=== PATIENT | male | born 1965 | race Caucasian/White ===

== ENCOUNTER 2020-09-18 14:23 | Observation (INO) | payer OTHER ==
--- OUTSIDE RECORDS SUMMARY | 2020-09-18 14:30 | XMS REPORT | Continuity of Care Document ---
:1965 Author Organization [facility] t Address [address] [place] [address] Care Team Providers Name Role Phone More BRYANT Primary Care Physician David Solares MD Attending Clinician Emily Joseph NP Attending Clinician Roland CLAY Attending Clinician Unavailable Eryn Vazquez MD Attending Clinician Dale HILLS Attending Clinician MD DAVID SOLARES Attending Clinician Unavailable Lovely OCHOA Attending Clinician Unavailable Hector OCHOA Attending Clinician Unavailable Provider Attending Clinician Unavailable Hayes OCHOA Attending Clinician Unavailable Federico BRYANT Attending Clinician SUJATHA Admitting Clinician Unavailable MD DAVID SOLARES Admitting Clinician Unavailable Payers Payer Name Policy Type Policy Effective Date Expiration Date [facility] Express Number AETNAAETNA PPO [id number] [place] OPEN 00:00:00 [facility] [id number] 2000-Present PPO Problems Condition Condition Condition Status Onset Resolution Last Treating Co mments Source Name Details Category Date Date Treatment Clinician Date Hemarthros Hemarthros Disease Active [place] is is 08 Methodi following following 00:00: st procedure procedure 00 Status Status Disease Active [place] post total post total 6-08 Me thodi right knee right knee 00:00: st replacemen replacemen 00 t t Primary Primary Disease Active 2017-04 [place] osteoarthr osteoarthr 0-29 Me [facility] itis of itis of 00:00: st right knee right knee 00 Primary Primary Disease Active 2017-04 [place] osteoarthr osteoarthr 0-26 Me thodi itis of itis of 00:00: st left knee left knee 00 Acute Acute Disease Active [place] meniscal meniscal 6-16 Method i tear, tear, 00:00: st medial medial 00 Primary Primary Disease Active [place] osteoarthr osteoarthr 6-16 Me thodi itis of itis of 00:00: st both knees both knees 00 Knee pain, Knee pain, Disease Active [place] left left 09-08 Methodi 00:00: st 00 Lymph Lymph Disease Active [place] edema edema 09-08 Methodi 00:00: st 00 Knee pain, Knee pain, Disease Active [place] right right 09-08 Methodi 00:00: st 00 Internal Internal Disease Active [place] derangemen derangemen 09-08 Me thodi t of both t of both 00:00: st knees knees 00 Type 2 Type 2 Disease Active [place] diabetes diabetes Method i mellitus mellitus st Allergies, Adverse Reactions, Alerts This patient has no known allergies or adverse reactions. Family History Family Member Diagnosis Comments Start Date Stop Date Source Natural father Arthritis [place] [facility] Natural mother Asthma [place] [facility] Social History Social Habit Start Date Stop Date Quantity Comments Source Exposure to Not sure [place] Metho dist SARS-CoV-2 (event) Tobacco use and 2020-09-16 2020-09-16 Never used Gianluca Gilliam ethodist exposure 00:00:00 00:00:00 Alcohol intake 2020-09-16 2020-09-16 Current drinker [place] [facility] 00:00:00 00:00:00 of alcohol (finding) Alcohol Comment 2018-07-11 2018-07-11 3-4 days a week [place] [facility] 00:00:00 00:00:00 Sex [birth year] [place] Tawana ethodist 00:00:00 00:00:00 Smoking Status Start Date Stop Date Source Never smoker [place] Methodis t Medications Ordered Filled Start Stop Current Ordering Indication Dosage Frequency Signature Comments Components Source Medication Medication Date Date Medication? Clinician (SIG) Name Name ciprofloxac Yes 500mg Q.5D Take 500 [place] in (CIPRO) 6-08 mg by Methodi 500 MG 08:39: mouth 2 st tablet 24 (two) times a day. collagenase Yes QD Apply [place] (SantyL) 6-08 topically Method i ointment 08:39: daily. st 24 b complex Yes 1{tbl} QD Take 1 [place] vitamins 6-08 tablet by Method i (B-100 08:38: mouth st COMPLEX) 52 daily. tablet glyburide-m Yes 2{tbl} Q.5D Take 2 [place] etformin 6-08 tablets by [facility] di (GLUCOVANCE 08:38: mouth 2 st ) 5-500 mg 52 (two) per tablet times a day with meals. topiramate Yes 25mg Q.5D Take 25 mg [place] (TOPAMAX) 6-08 by mouth 2 Meth monica 25 MG 08:38: (two) st tablet 52 times a day. fenofibrate Yes 145mg QD Take 145 [place] (TRICOR) 6-08 mg by Methodi 145 MG 08:38: mouth st tablet 52 daily. albuterol Yes 2{puff} Q6H Inhale 2 [place] (VENTOLIN 6-08 puffs Methodi HFA) 90 08:38: every 6 st mcg/actuati 52 (six) on inhaler hours as needed. NOVOLOG Yes Inject [place] U-100 6-08 under the [facility]i INSULIN 08:38: skin. st ASPART SUBQ 52 Insulin pump doxycycline Yes 100mg Q.5D Take 100 [place] (VIBRAMYCIN 6-08 mg by Methodi ) 100 MG 08:38: mouth 2 st oral dosage 52 (two) form times a day. HYDROcodone 2020- Yes acute pain 1{tbl} Q4H Take 1 [place] -acetaminop 6-08 06-18 tablet by Me elie monsivais (NORCO) 00:00: 23:[address] 5-325 mg 00 :00 every 4 per tablet (four) hours as needed for moderate pain for up to 10 days .acute pain. Max Daily Amount: 6 tablets irbesartan 0 2020- No 300mg QD Take 300 [place] (AVAPRO) 5-10 05-10 mg by Methodi 300 MG 09:54: 00:[address] tablet 13 :00 daily. HYDROcodone 2020- No acute pain 1{tbl} Q4H Take 1 [place] -acetaminop 5-04 05-19 tablet by Me elie monsivais (NORCO) 00:00: 23:[address] 5-325 mg 00 :00 every 4 per tablet (four) hours as needed for moderate pain for up to 15 days .acute pain. Max Daily Amount: 6 tablets lidocaine 2020- No 1{patch Q24H Place 1 [place] (LIDODERM) 08-06 } patch on Meth monica 5 % 00:00: 23:[address] 00 :00 daily for 30 days. Remove & Discard patch within 12 hours or as directed by MD brown 2020- No 100mg Q.5D Take 1 [place] sodium 08-05 capsule Methodi (Colace) 00:00: 23:59 ([address] 100 MG 00 :00 total) by capsule mouth 2 (two) times a day for 30 days. aspirin 81 2020- No 81mg Q.5D Chew 1 [place] mg chewable 08-05 tablet (81 M ethodi tablet 00:00: 23:59 mg total) st 00 :00 2 (two) times a day for 30 days. gabapentin 2020- No 300mg Q.12190814 Take 1 [place] (NEURONTIN) 08-05 [id number] capsule Methodi 300 mg 00:00: 23:59 3D ([address] capsule 00 :00 total) by mouth 3 (three) times a day for 30 days. methocarbam 2020- No 750mg Q.[id number] Take 1 [place] oL 08-05 [id number] tablet Method i (ROBAXIN) 00:00: 23:59 3D ([address] 750 MG 00 :00 total) by tablet mouth 3 (three) times a day as needed for muscle spasms for up to 30 days. celecoxib 2020- No 100mg Q.5D Take 1 [place] (CeleBREX) 08-05 capsule Metho di 100 MG 00:00: 23:59 ([address] capsule 00 :00 total) by mouth 2 (two) times a day for 30 days. oxyCODone-a 2020- No acute pain acute [place] cetaminophe 08-05 05-04 pain. 1-2 Me thodi n 00:00: 23:[address] (PERCOCET) 00 :00 orally 5-325 mg every 4 per tablet hours as needed for severe pain. Max 6/day oxyCODone 2020- No acute pain 10mg Q.5D Take 1 [place] (OxyCONTIN) 08-05 05-02 tablet (10 M ethodi 10 mg 00:00: 23:59 mg total) st tablet,oral 00 :00 by mouth 2 only,ext.re (two) l.12 hr ER times a tablet day for 5 days .acute pain. Max Daily Amount: 20 mg irbesartan- Yes 1{tbl} QD Take 1 [place] hydrochloro 4-01 tablet by [facility] hodi thiazide 00:00: mouth st (AVALIDE) 00 daily. 300-12.5 mg per tablet famotidine Yes 40mg QD Take 40 mg [place] (PEPCID) 40 3-11 by mouth Meth monica MG tablet 00:00: daily. st rosuvastati Yes 5mg QD Take 5 mg [place] n (CRESTOR) 3-02 by mouth Meth monica 5 mg tablet 00:00: daily. st 00 with meals bisoproloL- 2020- No 1{tbl} QD Take 1 [place] hydrochloro 2-06 05-10 [facility] 00:[address] (ZIAC) 00 :00 daily. 2.5-6.25 mg per tablet doxepin Yes 10mg QD Take 10 mg [place] (SINEquan) 05-07 by mouth Meth[facility] di 10 MG 00:00: nightly. st capsule 00 JARDIANCE Yes 25mg QD Take 25 mg [place] 25 mg 5-21 by mouth Methodi tablet 00:00: daily. st 00 TRULICITY Yes INJECT 0.5 [place] 1.5 mg/0.5 5-18 ML (1.5 Method i mL pen 00:00: MG) UNDER st injector 00 SKIN ONCE A WEEK montelukast 2018-0 Yes 10mg QD Take 10 mg [place] (SINGULAIR) 4-15 by mouth Meth monica 10 mg 00:00: nightly. st tablet 00 ezetimibe 2018-0 Yes 10mg QD Take 10 mg Marlon crowley (ZETIA) 10 3-16 by mouth Metho di mg tablet 00:00: every st 00 evening. Vital Signs Vital Name Observation Time Observation Value Comments Source Body height 2020-09-16 08:37:00 182.9 cm Gianluca Paulino Body weight 2020-09-16 08:37:00 144.244 kg Gianluca Paulino BMI 2020-09-16 08:37:00 43.13 kg/m2 Gianluca Paulino Heart rate 2020-08-05 08:01:00 94 /min Ginaluca Paulino Diastolic blood 2020-08-05 07:03:57 87 mm[Hg] [place] [facility] pressure Body temperature 2020-08-05 07:03:57 37.33 Ivana [place] [facility] Respiratory rate 2020-08-05 07:03:57 20 /min [place] [facility] Oxygen saturation in 2020-08-05 07:03:57 91 /min Gianluca Paulino Arterial blood by Pulse oximetry Systolic blood 2020-08-05 07:03:57 134 mm[Hg] Domo Paulino pressure Procedures Procedure Date / Time Performing Clinician Source Performed XR KNEE 1 OR 2 VW RIGHT 2020-09-16 08:49:06 Barry Solares US DUPLEX VENOUS LOWER 2020-08-18 11:34:01 Maureen Joseph on [facility] EXTREMITY RIGHT [facility] COMPLETE BLD COUNT 2020-08-05 05:27:00 Barry Solares W/AUTO DIFF BASIC METABOLIC PANEL 2020-08-05 05:27:00 Barry Solares ESTIMATED GFR 2020-08-05 05:27:00 Barry Solares POC GLUCOSE 2020-08-04 14:11:00 Barry Solares XR KNEE 1 OR 2 VW RIGHT 2020-08-04 14:00:00 Barry Solares SURGICAL PATHOLOGY REQUEST 2020-08-04 11:45:00 Barry Solares VA AN ELECTIVE 2020-08-04 11:01:00 Angelic Khan ENDOTRACHEAL AIRWAY ARTHROPLASTY, KNEE, TOTAL 2020-08-04 10:49:00 Barry Solares POC GLUCOSE 2020-08-04 10:45:00 Barry Solares VA AN PERIPHERAL BLOCK 2020-08-04 10:12:00 Angela Vazquez PROCEDURE FOR PAIN POC GLUCOSE 2020-08-04 08:43:00 Barry Solares ABO AND RH CONFIRMATION 2020-08-04 08:15:00 Barry Solares XR CHEST 2 VW 2020-07-31 12:21:00 Barry Solares COVID-19 QUALITATIVE PCR 2020-07-31 11:37:00 Barry Solares ECG 12-LEAD 2020-07-28 10:19:56 Barry Solares MRSA SCREEN CULTURE 2020-07-28 10:14:00 Maureen Joseph [facility] URINE CULTURE 2020-07-28 10:14:00 Barry Solares TYPE AND SCREEN 2020-07-28 10:14:00 Barry Solares URINALYSIS SCREEN AND 2020-07-28 10:14:00 Barry Solares MICROSCOPY, WITH REFLEX TO CULTURE HEMOGLOBIN A1C 2020-07-28 10:14:00 Barry Solares HC COMPLETE BLD COUNT 2020-07-28 10:14:00 Barry Solares W/AUTO DIFF COMPREHENSIVE METABOLIC 2020-07-28 10:14:00 Maureen Joseph PANEL [facility] PROTHROMBIN TIME WITH INR 2020-07-28 10:14:00 Maureen Joseph [place] PARTIAL THROMBOPLASTIN 2020-07-28 10:14:00 Maureen Joseph on [facility] TIME (PTT) Emily ESTIMATED GFR 2020-07-28 10:14:00 Maureen Joseph Meth odist Emily XR KNEE 4+ VW BILATERAL 2020-07-09 09:18:14 Barry Solares [facility] Plan of Care Planned Activity Planned Date Details Comments Source Future Scheduled 2020-11-09 INFLUENZA VACCINE [place] [facility] Test 00:00:00 [code = INFLUENZA VACCINE] Future Scheduled 2020-08-15 COVID-19 VACCINE (2 - [place] [facility] Test 00:00:00 Moderna 2-dose series) [code = COVID-19 VACCINE (2 - Moderna 2-dose series)] Future Scheduled 2014 COLONOSCOPY SCREENING [place] [facility] Test 00:00:00 [code = COLONOSCOPY SCREENING] Future Scheduled 2014 SHINGLES VACCINES (#1) [place] [facility] Test 00:00:00 [code = SHINGLES VACCINES (#1)] Future Scheduled 1982 Hepatitis C screening [place] [facility] Test 00:00:00 (procedure) [code = 063629568] Future Scheduled 1974 DIABETES: RETINAL EYE [place] [facility] Test 00:00:00 EXAM [code = DIABETES: RETINAL EYE EXAM] Future Scheduled 1974 DIABETIC FOOT EXAM [place] [facility] Test 00:00:00 [code = DIABETIC FOOT EXAM] Future Scheduled 1974 URINE MICROALBUMIN [place] [facility] Test 00:00:00 [code = URINE MICROALBUMIN] Encounters Start End Encounter Admission Attending Care Care Encounter Source Date/Time Date/Time Type Type Clinicians Facility Department ID 2020-09-16 2020-09-16 Outpatient SUJATHA [facility] [id number] [place] 00:00:00 00:00:00 BARRY [address] 2020-09-16 2020-09-16 Outpatient SUJATHA [facility] [id number] [place] 00:00:00 00:00:00 BARRY [address] 2020-08-18 2020-08-18 Outpatient [facility] [id number] [place] 00:00:00 00:00:[address] 2020-08-18 2020-08-18 Outpatient SOLARES, [facility] [id number] [place] 00:00:00 00:00:00 BARRY [address] 2020-08-04 2020-08-05 Outpatient SOLARES, [facility] 021 [id number] [place] 00:00:00 00:00:00 BARRY [address] 2020-07-31 2020-07-31 Outpatient SOLARES, [facility] [id number] [place] 00:00:00 00:00:00 BARRY [address] 2020-07-31 2020-07-31 Outpatient SOLARES, [facility] [id number] [place] 00:00:00 00:00:00 BARRY [address] 2020-07-31 2020-07-31 Outpatient [facility] [id number] [place] 00:00:00 00:00:[address] 2020-07-28 2020-07-28 Outpatient [facility] [id number] [place] 00:00:00 00:00:[address] 2020-07-28 2020-07-28 Outpatient SOLARES, [facility] [id number] [place] 00:00:00 00:00:00 BARRY [address] 2020-07-09 2020-07-09 Outpatient SOLARES, [facility] [id number] [place] 00:00:00 00:00:00 BARRY [address] 2020-07-09 2020-07-09 Outpatient SOLARES, [facility] [id number] [place] 00:00:00 00:00:00 BARRY [address] 2019-09-18 2019-09-18 Outpatient SOLARES, [facility] [id number] [place] 00:00:00 00:00:00 BARRY [address] 2019-09-18 2019-09-18 Outpatient SOLARES, [facility] [id number] [place] 00:00:00 00:00:00 BARRY [address] Results Test Description Test Time Test Comments Results Result [facility] e Comments Us duplex venous 2020-08-09 Interface, Radiology [place] lower extremity 0 Results In - Methodi st 14:39:00 08/18/2020 2:40 PM CDT [facility] [address] [place] [address], [place] [address] Lower Extremity Venous Report Pat.Name: HARLEY HAAS Pat.ID: [id number] .Date: 08/18/2020 Exam Time: 11:03:00 AM Study Type:LE Venous Age: 8 1965,54Y Sex: MALE Sonogrphr: Shiloh CHRISTY Mayer CPT - 4: 16268 Echo Event ID:[id number] Order ID: [id number] Reason for Study:Patient is post right total knee arthroplasty on08/04/20. Right lower extremity edema and pain.Procedures: Colorflow, Grayscale/2D, Pulsed wave Doppler S UMMARY: D UPLEX SCAN OBSERVATIONS:Rossi scale and color Doppler imaging of the right lower extremitydemonstrates: Deep Veins Right LeftCFV Patent PatentFemoral Mid PatentProfunda PatentPopliteal PatentPT (prox) PatentPT (dist) PatentPeroneal PatentGastrocs Patent Superficial VeinsGSV (prox) Patent(above knee)GSV (dist) Patent(below knee)SSV PatentRIGHT: Normal compressibility with no evidence of echogenic materialin the lumen of the above visualized veins.Color flow and Doppler signals demonstrate patency. Edema isappreciated in the lower leg.LEFT: Normal findings in the common femoral vein. PRELIMINARY FINDINGS:1. No evidence of venous thrombosis, right lower extremity.2. Doppler signals obtained in the bilateral common femoral vein arecomparable.PHYSICIA N INTERPRETATION:Venous examination of the right lower extremity and left groindemonstrated no evidence of venous thrombosis in the visualized veins. Normal compressibility and augmentation of all veins visualized. ---FINDINGS: ----Signed 08/18/2020 02:39 PMLeobardo Cole MD, FACS, [facility] Surgical pathology request 2020-08-07 14:28:58 Test Item Value Reference Range Interpretation Comme nts Case number (test code = [id number]) [id number] Surgical pathology report (test code = See link below for PDF Lab R eport 6129) Result status (test code = 0961845) This is Final Report for [id number] [place] [id number] 11:01:00Angelic Khan CRNA 08/04/2020 11:35 AMAirway Date/Time: 08/04/2020 11:01 AM Location: OR Performed by: REINIER/AAAnesthesiologist: Angela Vazquez MDResident/REINIER/AA: Angelic Khan CRNAAuthorized by: Angela Vazquez MD Urgency: ElectiveDifficult Airway: Yes Preoxygenated with 100% O2: Yes C-spine Precautions Maintained Throughout: Yes Mask Ventilation: Assisted maskFinal AirwayType: Endotracheal airwayFinal Endotracheal Airway: ETTTechnique Used: Video laryngoscopyDevices/Methods Used in Placement: Intubating styletInsertion Site: OralLaryngoscope Blade/Videolaryngoscope Blade Size: 4ETT Size (mm): 7.5Measured from: LipsETT to Lips (cm): 23Placement Verified by: CO2 detection, direct visualization and equal breath sounds Laryngoscopic view: Grade IIa - partial view of glottisRapid Sequence Induction (RSI): No Modified RSI: No Number of Attempts at Approach: 1 Smooth IV induction. Oral aw placed. Assisted ventilation 2-hand mask and able to ventilate easily. [place] Scope used with DVOC Grade 2a with ETT visualized thru VCs. +ETCO2.. +BS=Clear. ETT secured. Oral GT placed atraumatically s/p lubrication with surgilube with about 30 mls dark yell secretions suctioned and then to dependent drainage.[facility] MethodistPeripheral [id number] 10:12:00Angela Vazquez MD 08/04/2020 10:18 AMPeripheral Block Date/Time: 08/04/2020 10:12 AM Patient Location: Pre-opStart Time: 08/04/2020 10:10 AMEnd Time: 08/04/2020 10:12 AMReason for Block: post-op pain management Performed by: anesthesiologistAnesthesiologist: Angela Vazquez MDAuthorized by: Angela Vazquez MD Preprocedure: patient identified, IV checked, site and side verified, risks and benefits discussed, procedure verified, surgical consent complete, patient position confirmed, monitors and equipment checked, pre-op evaluation complete, site marked, timeout performed prior to procedure and coagulation status reviewed Peripheral Nerve Block: Patient Position: Supine Prep: ChloraPrep Monitoring: Blood pressure monitoring, continuous pulse oximetry and heart rateBlock Type: Adductor canalLaterality: RightInjection Technique: Single injectionProcedures: ultrasoundguided Needle: Needle Type: Pajunk Needle Gauge: 21 G Needle Length: 4 inAssessment: Injection Assessment: Visualized needle/local anesthetic surrounding nerve, intermittent aspiration during local anesthetic administration, no symptoms of intraneural/intravenous injection, visualized pertinent vascular structures and nerves and needle tip visualized at all times during injection of medication Paresthesia Pain: None Heart Rate Change: No Slow Fractionated Injection: Yes Block outcome: No apparent complications, patient comfortable and patient tolerated procedure wellMedicationsAdministeredRopivacaine 0.5 % PF (mL), 20 mL[place] [id number] (COVID-19) RNA [Presence] in Respiratory specimen by SABRA with probe [id number] 20:55:24 Test Item Value Reference Range Interpretation Comments SARS-CoV-2 (COVID-19) RNA Not detected Not-Detected [Presence] in Respiratory specimen by SABRA with probe detection (test code = 60608-5) Whether patient is employed in a healthcare setting (test code = 96785-8) Whether the patient has symptoms related to condition of interest (test code = 53901-8) Patient was hospitalized because of this condition (test code = 61139-4) Whether the patient was admitted to intensive care unit (ICU) for condition of interest (test code = 29291-7) Whether patient resides in a congregate care setting (test code = 35295-6)
[2020-09-18] MEDS ORDERED: D50W 25 GM/50 ML SYRINGE IV PRN (15:08)
[2020-09-18] MEDS ORDERED: GLUCAGON 1 MG/VIAL IM PRN (15:08)
[2020-09-18 15:30] VITALS: BMI 38.9
[2020-09-18] MEDS ORDERED: CEFAZOLIN/SWI 1gm 1 GM/10 ML SYR IV SCH (16:00)
[2020-09-18 16:14] LABS: Urine Appearance CLEAR (Clear); Urine Bilirubin NEGATIVE (Negative); Urine Blood NEGATIVE (Negative); Urine Color YELLOW (Yellow); Urine Glucose 3+ (Negative); Urine Protein NEGATIVE (Negative); Urine Specific Gravity >=1.030 (1.005-1.030); Urine Urobilinogen 0.2 mg/dL (0.2-1.0)
[2020-09-18 16:19] LABS: Urine Microscopic Reflex NO UMIC
[2020-09-18] MEDS: INSULIN -REGULAR HUMAN 50 UNIT/0.5 ML ML SQ SCH ×2 (16:30→20:39)
--- NOTE | 2020-09-18 16:31 | RAD REPORT ---
EXAM DESCRIPTION: Zafar Murray (2 Views)09/18/2020 3:39 pm CLINICAL HISTORY: [facility] COMPARISON: 2019 FINDINGS: The lungs appear clear of acute infiltrate. The heart is normal size IMPRESSION: No acute abnormalities displayed
[2020-09-18 17:12] LABS: Absolute Lymphocytes (CBC) 1.5 K/uL (0.7-4.9); Basophils % 0.8 % (0-1.3); Hematocrit 35.6 % (39.6-49.0); Lymphocytes % 17.5 % (15.3-44.8); MPV 7.8 fL (7.6-11.3); RBC Red Blood Cell Count 4.35 M/uL (4.33-5.43)
[2020-09-18 17:27] LABS: Protime INR 1.09
[2020-09-18 17:56] LABS: Albumin 3.6 g/dL (3.4-5.0); Bilirubin Direct 0.1 mg/dL (0-0.2); Bilirubin Total 0.4 mg/dL (0.2-1.0); Magnesium 2.3 mg/dL (1.8-2.4); Phosphorus 2.6 mg/dL (2.5-4.9); Potassium 3.6 mmol/L (3.5-5.1); Protein, Total 8.2 g/dL (6.4-8.2); Thyroid Stimulating Hormone 0.988 uIU/mL (0.360-3.740)
[2020-09-18] MEDS: TRAMADOL HCL 50 MG TAB PO PRN (21:17)
[2020-09-19 05:46] LABS: Basophils % 0.8 % (0-1.3); Hematocrit 32.8 % (39.6-49.0); Lymphocytes % 28.7 % (15.3-44.8); MPV 7.9 fL (7.6-11.3); RBC Red Blood Cell Count 3.99 M/uL (4.33-5.43)
[2020-09-19] MEDS ORDERED: CEFAZOLIN/NS 1gm 1 GM/50 ML BAG IVPB SCH (06:00)
[2020-09-19 06:05] LABS: Magnesium 2.5 mg/dL (1.8-2.4); Potassium 3.4 mmol/L (3.5-5.1)
[2020-09-19] MEDS ORDERED: POTASSIUM CL SA 10 MEQ TAB PO ONE (06:14)
[2020-09-19] MEDS: INSULIN -REGULAR HUMAN 50 UNIT/0.5 ML ML SQ SCH ×2 (07:30→11:30)
[2020-09-19] MEDS ORDERED: METFORMIN HCL 500 MG TAB PO SCH (08:00)
[2020-09-19] MEDS ORDERED: glyBURIDE 2.5 MG TAB PO SCH (08:00)
[2020-09-19] MEDS: TRAMADOL HCL 50 MG TAB PO PRN (08:29)
[2020-09-19] MEDS: NA CHLORIDE 0.9% 1,000 ML ONE (08:55)
[2020-09-19] MEDS ORDERED: GLYBURIDE PO SCH (09:00)
[2020-09-19] MEDS ORDERED: TOPIRAMATE 25 MG TAB PO SCH (09:00)
[2020-09-19] MEDS ORDERED: BISOPROLOL/HCTZ 2.5/6.25MG TAB PO SCH (09:00)
[2020-09-19] MEDS ORDERED: FAMOTIDINE 20 MG TAB PO SCH (09:00)
[2020-09-19] MEDS ORDERED: IRBESARTAN 150 MG TAB PO SCH (09:00)
[2020-09-19] MEDS ORDERED: FENOFIBRATE 145 MG TAB PO SCH (09:00)
[2020-09-19] MEDS ORDERED: FENOFIBRATE 160 MG TAB PO SCH (09:00)
[2020-09-19] MEDS ORDERED: METFORMIN HCL PO SCH (09:00)
[2020-09-19] MEDS ORDERED: COLLAGENASE 30 GM OINTMENT TOP ONE (09:10)
[2020-09-19] MEDS ORDERED: MIDAZOLAM HCL 2 MG/2 ML INJ ONE (09:13)
[2020-09-19] MEDS ORDERED: LIDOCAINE 1% MPF 5 ML VIAL ONE (09:13)
[2020-09-19] MEDS ORDERED: propofoL 200 MG/20 ML VIAL IV ONE (09:13)
[2020-09-19] MEDS ORDERED: FENTANYL CITR 100 MCG/2 ML ONE (09:13)
[2020-09-19] MEDS ORDERED: CEFAZOLIN/SWI 1gm 1 GM/10 ML SYR ONE (09:35)
[2020-09-19] MEDS ORDERED: KETOROLAC 30 MG/ML INJ ONE (10:07)
[2020-09-19] MEDS ORDERED: ONDANSETRON 4 MG/2 ML VIAL ONE (10:07)
--- NOTE | 2020-09-19 10:16 | P.OP ---
Manager Cosmetic: NONE,NONE Preoperative diagnosis: Left 2nd toe osteo with non healing wound Postoperative diagnosis: same Primary procedure: Left 2nd toe amputation Anesthesia: general Estimated blood loss: min Specimen: 2nd toe Findings: as above Complications: None Transferred to: Recovery Room Condition: Good
[2020-09-19 10:56] VITALS: O2SAT 97
[2020-09-19 12:12] VITALS: TEMP 99.9
--- NOTE | 2020-09-19 13:32 | PREOPCON ---
Date of Consultation: 09/18/2020 Reason For Consultation: Osteomyelitis, left second toe. History Of Present Illness: Patient is a 54-year-old gentleman with multiple medical problems, who w as seen by Dr. Aguero in the wound healing center with an osteomyelitis of the distal second toe with multiple fragments. He felt that IV antibiotics would not be helpful and this was very severe. It n eeded an amputation. The patient is awake, alert. He has significant neuropathy, therefore he has d oes not have much symptoms. There is an open wound there in the distal part of the toe as well. No purulent discharge. No fever or chills. No sore throat, runny nose, cough, headaches, or dizziness. No chest pain. Please note, patient is positive for COVID, however, he is asymptomatic. Allergies: PATIENT DOES NOT HAVE ANY ALLERGIES. Review of Systems: Otherwise unremarkable. Past Medical History: Hypertension, obstructive sleep apnea, obesity, lymphedema, recurrent cellulit is, asthma, neuropathy, peripheral vascular disease. Medications: Reviewed. He is not on any blood thinners. Past Surgical History: Significant for a mass that I excised several years ago. The patient does no t smoke or drink. Family History: Noncontributory. Physical Examination: Vital signs: Stable. T-max was 100.4. General: He is awake, alert, and oriented x3. Head and neck: Cranial nerves 2 through 12 are grossly within normal limits. No neck masses. No JV D. Throat clear. Neck is supple. Chest: Clear. Heart: S1, S2. Abdomen: Soft. Extremities: Diminished dorsalis pedis and posterior tibial pulses. On the mid and distal phalanx o f the left second toe, there is redness, significant edema, the nonhealing ulcer. No purulent discha rge. Imaging: MRI reviewed. MRI shows multiple fragments of the distal phalanx moderately-severe bone de structive osteo of the first distal phalanx. Thickened edematous soft tissue surrounding the first d istal phalanx without abscess or drainable fluid collection. Assessment: Osteomyelitis, left second toe, advanced, the nonhealing wound. Recommendations: Continue IV antibiotics. We will proceed with a left second toe amputation. The p atient understands the risks, benefits, and alternatives, and agrees to procedure. /MODL Voice ID: [id number] Report ID: [id number]
[2020-09-19 14:26] VITALS: BP 146/75
--- NOTE | 2020-09-19 20:26 | OP ---
Date of Procedure: 09/19/2020 Surgeon: Alan Swartz MD Manager Scheduling: None. Preoperative Diagnosis: Osteomyelitis, left second toe, nonhealing wound. Postoperative Diagnosis: Osteomyelitis, left second toe, nonhealing wound. Procedure: Left second toe amputation. Estimated Blood Loss: Minimal. Specimens: Left second toe. Findings: As above. Anesthesia: General. Complications: None. Disposition: The patient tolerated the procedure in stable condition, taken to Recovery in good gene ral condition. Procedure In Detail: The patient was brought to the OR and placed in supine position. General anest hesia begun. The patient was prepped and draped in the usual sterile fashion. Then, sharp dissectio n proceeded along the base of the second toe to preserve as much skin as we possibly could. He had s ome joining of the skin, webbing with third toe, and this has helped to salvage more skin and then go od healthy bone was identified in the proximal phalanx and whole toe was excised, sent to Pathology a s specimen. Then, rongeur was used to smoothen out rough edges and rasp was used as needed. Wound i rrigated, bleeding controlled with cautery, and then 2-0 chromic used to approximate subcutaneous tis yasemin, and 3-0 nylon used to close skin. Sterile dressing was applied. The patient was awakened and taken to Recovery in good general conditi on. /MODL Voice ID: [id number] Report ID: [id number]
[2020-09-19] MEDS ORDERED: ROSUVASTATIN 10 MG TAB PO SCH (21:00)
[2020-09-19] MEDS ORDERED: LORATADINE 10 MG TAB PO SCH (21:00)
[2020-09-19] MEDS ORDERED: EZETIMIBE 10 MG TAB PO SCH (21:00)
[2020-09-19] MEDS ORDERED: MONTELUKAST 10 MG TAB PO SCH (21:00)
[2020-09-19] MEDS ORDERED: HOME MED 1 EA UNK (Levocetirizine Dihydrochloride [Allergy Relief] 5 MG Tablet) PO SCH (21:00)
[2020-09-24 11:47] LABS: Vitamin D 1,25-Dihydroxy Total 27 pg/mL (18-72); Vitamin D,1,25-OH2, D2 <8 pg/mL
== END 2020-09-19 14:25 | disposition home or self-care (01) ==
LOC: 2ND 14:25 → 3RD-ICU 19:57
PROVIDERS: ADMIT Internal Medicine; ATTEND Internal Medicine
PROC: 0Y6S0Z0 Detachment at Left 2nd Toe, Complete, Open Approach (ICD-10-PCS; principal; 2020-09-19 12:30)
DX: E11.69 Type 2 diabetes mellitus with other specified complication (principal); M86.8X7 Other osteomyelitis, ankle and foot; Z20.822 Contact with and (suspected) exposure to COVID-19; E11.621 Type 2 diabetes mellitus with foot ulcer; L97.529 Non-pressure chronic ulcer of other part of left foot with unspecified severity; G47.33 Obstructive sleep apnea (adult) (pediatric); K21.9 Gastro-esophageal reflux disease without esophagitis; I10 Essential (primary) hypertension; E66.9 Obesity, unspecified; E11.51 Type 2 diabetes mellitus with diabetic peripheral angiopathy without gangrene; J45.20 Mild intermittent asthma, uncomplicated; E11.42 Type 2 diabetes mellitus with diabetic polyneuropathy; E11.43 Type 2 diabetes mellitus with diabetic autonomic (poly)neuropathy; Z68.38 Body mass index [BMI] 38.0-38.9, adult
CPT/HCPCS: 28820; 87040; 87070; 85025 ×2; 80048 ×2; 36415 ×2; 83735 ×2; 87205 ×2; 84100; 85610; 82947 ×4; 80076; 88305; 88311; 85730; 82652; 87075; 84443; 87077; 87186; 81003; 83036; 82570; 82607; 82043; 71046; G0379; U0003 ×2; J2704; J3590; J3010; J0690; G0378 ×3; J7030; J2405; J2250

== ENCOUNTER 2021-02-03 11:01 | Inpatient (IN) | payer OTHER ==
[2021-02-03] MEDS ORDERED: GLUCAGON 1 MG/VIAL IM PRN ×2 (13:54→14:00)
[2021-02-03] MEDS ORDERED: D50W 25 GM/50 ML SYRINGE IV PRN ×2 (13:54→14:00)
[2021-02-03] MEDS ORDERED: ONDANSETRON 4 MG (ODT) TAB PO PRN (14:00)
[2021-02-03] MEDS ORDERED: DIPHENHYDRAMINE 25 MG TAB/CAP PO PRN (14:00)
[2021-02-03] MEDS ORDERED: POLYETHYL GLY 3350 17 GM/DOSE PO PRN (14:00)
[2021-02-03] MEDS ORDERED: ONDANSETRON 4 MG/2 ML VIAL IV PRN (14:00)
[2021-02-03] MEDS ORDERED: LOPERAMIDE HCL 2 MG CAPSULE PO PRN (14:00)
--- NOTE | 2021-02-03 15:08 | RAD REPORT ---
EXAM DESCRIPTION: RAD - Chest Pa And Lat (2 Views) - 02/03/2021 3:02 pm CLINICAL HISTORY: Direct Admit COMPARISON: Chest Pa And Lat (2 Views) dated 09/18/2020; Chest Pa And Lat (2 Views) dated 12/19/2019; C hest Pa And Lat (2 Views) dated 05/12/2018; Chest Single View dated 11/16/2016 FINDINGS: Lines: None. Lungs: No evidence of edema or pneumonia. Pleural: No significant pleural effusions or pneumothorax. Cardiac: The heart size is within normal limits. Bones: No acute fractures. Other: IMPRESSION: No acute cardiopulmonary disease.
[2021-02-03] MEDS: NACHLORIDE 0.45% 1,000 ML IV SCH (15:16)
[2021-02-03 15:33] VITALS: BMI 39.8
[2021-02-03 16:09] LABS: Albumin 3.3 g/dL (3.4-5.0); Bilirubin Direct 0.1 mg/dL (0-0.2); Bilirubin Total 0.5 mg/dL (0.2-1.0); Magnesium 2.6 mg/dL (1.8-2.4); Phosphorus 2.6 mg/dL (2.5-4.9); Potassium 3.5 mmol/L (3.5-5.1); Protein, Total 8.4 g/dL (6.4-8.2); Thyroid Stimulating Hormone 1.83 uIU/mL (0.360-3.740)
[2021-02-03] MEDS ORDERED: INSULIN -REGULAR HUMAN 50 UNIT/0.5 ML ML SQ SCH (16:30)
[2021-02-03 16:47] LABS: Absolute Lymphocytes (CBC) 0.8 K/uL (0.7-4.9); Basophils % 0.4 % (0-1.3); Hematocrit 44.5 % (39.6-49.0); MPV 8.8 fL (7.6-11.3); RBC Red Blood Cell Count 5.44 M/uL (4.33-5.43)
[2021-02-03] MEDS: VANCOMYCIN 2 GM in NA CHLORIDE 0.9% 500 ML IVPB SCH (17:16)
[2021-02-03] MEDS: INSULIN -REGULAR HUMAN 50 UNIT/0.5 ML ML SQ SCH ×2 (17:22→20:37)
[2021-02-03] MEDS: ACETAMINOPHEN 325 MG TABLET PO PRN (17:56)
[2021-02-03] MEDS ORDERED: INFLUENZA VACCINE (for 6+ mo) 0.5 ML DOSE IMVAC ONE (18:00)
[2021-02-03 19:49] LABS: Blood Morphology Comment NOT SEEN (NOT SEEN); Platelet Estimate ADEQ; White Blood Cell Scan OK (OK)
[2021-02-04] MEDS: ACETAMINOPHEN 325 MG TABLET PO PRN ×3 (00:06→15:20)
[2021-02-04 05:04] LABS: Absolute Lymphocytes (CBC) 1.1 K/uL (0.7-4.9); Basophils % 0.4 % (0-1.3); Hematocrit 41.9 % (39.6-49.0); Lymphocytes % 11.6 % (15.3-44.8); MPV 8.6 fL (7.6-11.3); Magnesium 2.3 mg/dL (1.8-2.4); Potassium 4.2 mmol/L (3.5-5.1)
[2021-02-04] MEDS: TOPIRAMATE 25 MG TAB PO SCH ×2 (08:10→20:17)
[2021-02-04] MEDS: INSULIN -REGULAR HUMAN 50 UNIT/0.5 ML ML SQ SCH ×4 (08:10→20:17)
[2021-02-04] MEDS: ENOXAPARIN 40 MG/0.4 ML SQ SCH (08:10)
[2021-02-04] MEDS: IRBESARTAN 150 MG TAB PO SCH (08:11)
[2021-02-04] MEDS: EZETIMIBE 10 MG TAB PO SCH (08:11)
[2021-02-04] MEDS: FENOFIBRATE 160 MG TAB PO SCH (08:11)
[2021-02-04] MEDS: BISOPROLOL/HCTZ 2.5/6.25MG TAB PO SCH (08:12)
[2021-02-04] MEDS: ROSUVASTATIN 10 MG TAB PO SCH (08:12)
[2021-02-04] MEDS: VANCOMYCIN 2 GM in NA CHLORIDE 0.9% 500 ML IVPB SCH (11:33)
--- NOTE | 2021-02-04 13:17 | P.PN ---
Subjective Date of Service: 02/04/21 Chief Complaint: BETTER. Subjective: Improving HE HAS NO PAIN , NO FEVER. NO COUGH. Physical Examination - Vital Signs Temperature: 98.5 F Blood Pressure: 131/68 Pulse: 81 Respirations: 20 Pulse Ox (%): 97 - Physical Exam General: Oriented x3, Obese HEENT: Atraumatic, PERRLA, EOMI Neck: Supple, JVD not distended Respiratory: Clear to auscultation bilaterally, Normal air movement Cardiovascular: Regular rate/rhythm, Normal S1 S2 Gastrointestinal: Normal bowel sounds, No tenderness Musculoskeletal: No tenderness, Erythema (L LEG. CELLULITIS FROM LYEMPHEDA. HE HAS QUIT WEARING FARROW WRAPS. ) Integumentary: No rashes Neurological: Normal speech, Normal tone, Normal affect Lymphatics: No axilla or inguinal lymphadenopathy - Studies Laboratory Data (last 24 hrs) 02/04/21 13:50: Sodium Cancelled, Potassium Cancelled, BUN Cancelled, Creatinine Cancelled, Glucose Cancelled, Magnesium Cancelled 02/04/21 13:50: WBC Cancelled, Hgb Cancelled, Hct Cancelled, Plt Count Cancelled 02/04/21 03:31: LDL Cholesterol Direct 63 L 02/04/21 03:31: Sodium 139, Potassium 4.2, BUN 19 H, Creatinine 1.37 H, Glucose 182 H, Magnesium 2.3 02/04/21 03:31: WBC 9.30, Hgb 13.4 L, Hct 41.9, Plt Count 194 02/03/21 14:50: WBC 9.30, Hgb 14.4, Hct 44.5, Plt Count 208 02/03/21 14:50: Sodium 140, Potassium 3.5, BUN 21 H, Creatinine 1.44 H, Glucose 227 H, Phosphorus 2.6, Magnesium 2.6 H, Total Bilirubin 0.5, AST 20, ALT 35, Alkaline Phosphatase 70 02/03/21 14:50: APTT 43.2 H Microbiology Data (last 24 hrs): 02/03/21 15:09 Blood - Blood Anaerobic Blood Culture - Final Medications List Reviewed: Yes Assessment And Plan - Current Problems (Diagnosis) (1) Cellulitis with lymphangitis Current Visit: Yes Status: Acute Plan: IV VANCOMYCIN ORAL FROM TOMORROW AND DC POSSIBLE. (2) Diabetes Current Visit: No Status: Chronic Plan: DIET IS POOR AND MEDS ARE PARTIALLY EFFECTIVE HE IS NOT ABLE TO LOSE WEIGHT. VARIOUS DIETARY INST. GIVEN. Qualifiers: Diabetes mellitus type: type 2
--- NOTE | 2021-02-04 16:09 | EKG ---
Test Date: 2021-02-03 Test Time: 14:45:55 Bench Chemist: RODNEY MEASUREMENT RESULTS: Intervals: Rate: 74 SD: 188 QRSD: 112 QT: 392 QTc: 435 [place]: P: 63 SD: 188 QRS: -76 T: 23 INTERPRETIVE STATEMENTS: Normal sinus rhythm Left axis deviation Abnormal ECG Compared to ECG 11/15/2016 14:37:46 Myocardial infarct finding no longer present Electronically Signed On 02-04-21 16:07:12 CDT by Hong Sanchez
[2021-02-04] MEDS: MONTELUKAST 10 MG TAB PO SCH (20:17)
[2021-02-04] MEDS: NACHLORIDE 0.45% 1,000 ML IV SCH (23:39)
[2021-02-05 04:02] LABS: Absolute Lymphocytes (CBC) 1.2 K/uL (0.7-4.9); Basophils % 0.2 % (0-1.3); Hematocrit 39.3 % (39.6-49.0); RBC Red Blood Cell Count 4.81 M/uL (4.33-5.43)
[2021-02-05 04:13] LABS: Magnesium 2.5 mg/dL (1.8-2.4)
[2021-02-05] MEDS: VANCOMYCIN 2 GM in NA CHLORIDE 0.9% 500 ML IVPB SCH (05:02)
[2021-02-05] MEDS: ACETAMINOPHEN 325 MG TABLET PO PRN ×3 (05:19→20:56)
[2021-02-05 05:26] LABS: Blood Morphology Comment NOT SEEN (NOT SEEN); Platelet Estimate ADEQ
[2021-02-05] MEDS ORDERED: PNEUMOCOCCAL VACCINE 0.5 ML IMVAC ONE (08:00)
[2021-02-05] MEDS: EZETIMIBE 10 MG TAB PO SCH (08:17)
[2021-02-05] MEDS: FENOFIBRATE 160 MG TAB PO SCH (08:18)
[2021-02-05] MEDS: IRBESARTAN 150 MG TAB PO SCH (08:18)
[2021-02-05] MEDS: TOPIRAMATE 25 MG TAB PO SCH ×2 (08:19→20:49)
[2021-02-05] MEDS: ROSUVASTATIN 10 MG TAB PO SCH (08:20)
[2021-02-05] MEDS: INSULIN -REGULAR HUMAN 50 UNIT/0.5 ML ML SQ SCH ×4 (08:21→20:57)
[2021-02-05] MEDS: ENOXAPARIN 40 MG/0.4 ML SQ SCH (08:21)
[2021-02-05] MEDS: BISOPROLOL/HCTZ 2.5/6.25MG TAB PO SCH (08:21)
[2021-02-05 08:55] LABS: Urine Appearance CLEAR (Clear); Urine Blood NEGATIVE (Negative); Urine Color YELLOW (Yellow); Urine Glucose 3+ (Negative); Urine Protein NEGATIVE (Negative); Urine Specific Gravity >=1.030 (1.005-1.030); Urine Urobilinogen 0.2 mg/dL (0.2-1.0)
[2021-02-05 09:43] LABS: Urine Bilirubin NEGATIVE (Negative)
[2021-02-05 10:26] LABS: Urine Bacteria NONE SEEN /HPF (NONE SEEN); Urine RBC <5 /HPF (NONE SEEN)
[2021-02-05 10:31] LABS: UR PROTEIN 24.7 mg/dL (<11.9); Urine Protein/Creatinine Ratio 0.24 ratio (<0.15)
--- NOTE | 2021-02-05 12:42 | P.PN ---
Subjective Date of Service: 02/05/21 Chief Complaint: BETTER. Subjective: Improving HE HAS NO PAIN , NO FEVER. NO COUGH. PAIN HAS IMPROVED. REDNESS BETTER BUT STILL THERE. Physical Examination - Vital Signs Temperature: 97.7 F Blood Pressure: 130/68 Pulse: 75 Respirations: 20 Pulse Ox (%): 96 - Physical Exam General: Oriented x3, Obese HEENT: Atraumatic, PERRLA, EOMI Neck: Supple, JVD not distended Respiratory: Clear to auscultation bilaterally, Normal air movement Cardiovascular: Regular rate/rhythm, Normal S1 S2 Gastrointestinal: Normal bowel sounds, No tenderness Musculoskeletal: No tenderness Integumentary: No rashes, Tenderness/swelling, Erythema (FADING ERYTHEMA.) Neurological: Normal speech, Normal tone, Normal affect Lymphatics: No axilla or inguinal lymphadenopathy - Studies Laboratory Data (last 24 hrs) 02/05/21 03:46: Sodium 141, Potassium 4.0, BUN 23 H, Creatinine 1.06, Glucose 213 H, Magnesium 2.5 H 02/05/21 03:46: WBC 8.20, Hgb 12.7 L, Hct 39.3 L, Plt Count 211 Microbiology Data (last 24 hrs): 02/03/21 15:09 Blood - Blood Anaerobic Blood Culture - Final Medications List Reviewed: Yes Assessment And Plan - Current Problems (Diagnosis) (1) Cellulitis with lymphangitis Current Visit: Yes Status: Acute Plan: IV VANCOMYCIN ORAL FROM TOMORROW AND DC POSSIBLE. BROWN DISCOLORATION NOW FADING. MAY BE HOME IN AM. (2) Diabetes Current Visit: No Status: Chronic Plan: DIET IS POOR AND MEDS ARE PARTIALLY EFFECTIVE HE IS NOT ABLE TO LOSE WEIGHT. VARIOUS DIETARY INST. GIVEN. Qualifiers: Diabetes mellitus type: type 2
[2021-02-05] MEDS: MONTELUKAST 10 MG TAB PO SCH (20:49)
[2021-02-05] MEDS ORDERED: VANCOMYCIN 2.25 GM in NA CHLORIDE 0.9% 500 ML IVPB SCH (23:00)
[2021-02-06 01:38] VITALS: O2SAT 98
[2021-02-06] MEDS: ACETAMINOPHEN 325 MG TABLET PO PRN (04:11)
[2021-02-06 06:13] LABS: Basophils % 0.4 % (0-1.3); Hematocrit 40.3 % (39.6-49.0); Lymphocytes % 11.7 % (15.3-44.8); RBC Red Blood Cell Count 4.95 M/uL (4.33-5.43)
[2021-02-06 06:24] LABS: Magnesium 2.4 mg/dL (1.8-2.4); Potassium 3.4 mmol/L (3.5-5.1)
[2021-02-06] MEDS ORDERED: POTASSIUM CL SA 10 MEQ TAB PO ONE (07:24)
[2021-02-06] MEDS: FENOFIBRATE 160 MG TAB PO SCH (08:20)
[2021-02-06] MEDS: ENOXAPARIN 40 MG/0.4 ML SQ SCH (08:20)
[2021-02-06] MEDS: INSULIN -REGULAR HUMAN 50 UNIT/0.5 ML ML SQ SCH ×2 (08:20→11:41)
[2021-02-06] MEDS: ROSUVASTATIN 10 MG TAB PO SCH (08:21)
[2021-02-06] MEDS: EZETIMIBE 10 MG TAB PO SCH (08:21)
[2021-02-06] MEDS: IRBESARTAN 150 MG TAB PO SCH (08:21)
[2021-02-06] MEDS: TOPIRAMATE 25 MG TAB PO SCH (08:22)
[2021-02-06] MEDS: BISOPROLOL/HCTZ 2.5/6.25MG TAB PO SCH (08:22)
[2021-02-06] MEDS: NACHLORIDE 0.45% 1,000 ML IV SCH (08:40)
[2021-02-06 13:30] VITALS: BP 127/72; TEMP 98.7
--- NOTE | 2021-02-06 21:10 | P.DS ---
Admission Date: 02/05/21 Discharge Date: 02/06/21 Disposition: DC HOME/HOME HEALTH CARE Discharge Condition: GOOD Reason for Admission: BETTER. - Problems (1) Cellulitis with lymphangitis Status: Acute (2) Diabetes Status: Chronic Qualifiers: Diabetes mellitus type: type 2 Hospital Course: CHRISTIAN IS A DIABETIC WITH NEUROPATHY AND CHORNIC EDEMA WITH OBESITY. HE COMES IN WITH L LEG CELLULITIS THAT COVERED THE WHOLE ANTERIOR LEG AND LOWER ANTERIOR THIGH. HE IMPROVED ON VANCOMYCIN. I SUSPECT MRSA INFECTION CLINICALLY. HE HAS IMPROVED WITH TWO DAYS OF ABX. HE IS HOME NOW [facility] ORAL BACTRIM DS BID AND I WILL SEE HIM ONE WEEK. HE SHOULD WEAR THE WRAPS TO PREVENT INFECTIONS. Vital Signs/Physical Exam: Temp Pulse Resp BP Pulse Ox 98.7 F 72 22 H 127/72 96 02/06/21 12:00 02/06/21 12:00 02/06/21 12:00 02/06/21 12:00 02/06/21 12:00 General: Alert, In no apparent distress HEENT: Atraumatic, PERRLA, EOMI Neck: Supple, JVD not distended Respiratory: Clear to auscultation bilaterally, Normal air movement Cardiovascular: Regular rate/rhythm, Normal S1 S2 Gastrointestinal: Normal bowel sounds, No tenderness Musculoskeletal: No tenderness Integumentary: No rashes, Erythema (DOWN FADING AND HAS BROWN DISCOLORATION INSTEAD OF ANGRY ERYTHEMA) Neurological: Normal speech, Normal tone, Normal affect Lymphatics: No axilla or inguinal lymphadenopathy Laboratory Data at Discharge: WBC 8.40 K/uL (4.3-10.9) 02/06/21 05:37 Hgb 13.0 g/dL (13.6-17.9) L 02/06/21 05:37 Hct 40.3 % (39.6-49.0) 02/06/21 05:37 Plt Count 255 K/uL (152-406) D 02/06/21 05:37 APTT 43.2 SECONDS (24.3-36.9) H 02/03/21 14:50 Sodium 139 mmol/L (136-145) 02/06/21 05:37 Potassium 3.4 mmol/L (3.5-5.1) L 02/06/21 05:37 BUN 18 mg/dL (7-18) 02/06/21 05:37 Creatinine 0.89 mg/dL (0.55-1.3) 02/06/21 05:37 Glucose 252 mg/dL (74-106) H 02/06/21 05:37 Phosphorus 2.6 mg/dL (2.5-4.9) 02/03/21 14:50 Magnesium 2.4 mg/dL (1.8-2.4) 02/06/21 05:37 Total Bilirubin 0.5 mg/dL (0.2-1.0) 02/03/21 14:50 AST 20 U/L (15-37) 02/03/21 14:50 ALT 35 U/L (12-78) 02/03/21 14:50 Alkaline Phosphatase 70 U/L (45-117) 02/03/21 14:50 LDL Cholesterol Direct 63 mg/dL (100-129) L 02/04/21 03:31 Home Medications: Fenofibrate [Tricor] 145 mg PO DAILY 09/01/20 Rosuvastatin Calcium 5 mg PO DAILY 09/18/20 Bisoprolol/Hctz [Ziac 2.5/6.25] 1 tab PO DAILY 02/03/21 Doxycycline Hyclate 100 mg PO BID 02/03/21 Ezetimibe [Zetia] 10 mg PO DAILY 02/03/21 Famotidine 40 mg PO DAILY 02/03/21 Irbesartan 75 mg PO DAILY 02/03/21 Levocetirizine Dihydrochloride [Allergy Relief] 5 mg PO BEDTIME 02/03/21 Montelukast Sodium 10 mg PO BEDTIME 02/03/21 Topiramate 25 mg PO BID 02/03/21 Sulfamethoxazole/Trimethoprim [Bactrim Ds Tablet] 1 each PO BID 10 Days tablet 02/06/21 New Medications: Sulfamethoxazole/Trimethoprim [Bactrim Ds Tablet] 1 each PO BID 10 Days tablet Diet: ADA Activity: Ad rafy Followup: Oleg Aguero MD [Family Provider] - 1 Week (Call to schedule an appointment )
[2021-02-09 00:10] LABS: Vitamin D 1,25-Dihydroxy Total 38 pg/mL (18-72); Vitamin D,1,25-OH2, D2 <8 pg/mL
== END 2021-02-06 12:05 | disposition home or self-care (01) | DRG 603 ==
LOC: 4TH 13:10 → INTOOBSV 13:10 → OBSVTOIN 02-05 14:16
PROVIDERS: ADMIT Internal Medicine; ATTEND Internal Medicine
DX: L03.116 Cellulitis of left lower limb (principal); B95.62 Methicillin resistant Staphylococcus aureus infection as the cause of diseases classified elsewhere; I89.1 Lymphangitis; E66.9 Obesity, unspecified; Z68.39 Body mass index [BMI] 39.0-39.9, adult; E11.40 Type 2 diabetes mellitus with diabetic neuropathy, unspecified; Z20.822 Contact with and (suspected) exposure to COVID-19
CPT/HCPCS: 36415; 71046; 80048; 80076; 80202; 81001; 82570; 82607; 82652; 82947; 83036; 83735; 84100; 84156; 84443; 85025; 85730; 87040; 93005; G0378; G0379; J1650; J3370; J7040; U0003